=== PATIENT | female | born 1990 | race African-American/Black ===

== ENCOUNTER 2016-11-06 13:34 | Emergency (ER) | payer OTHER ==
[~2016-11-06] VITALS: Ht 165.1 cm; Wt 68.0 kg
[~2016-11-06 13:34] MED LIST: MACROBID 100 M100 M1 PO; NOHOMEMEDICATIONS; ONDANSETRON HCL4 M2 PO
[2016-11-06 13:35] VITALS: BP 100/62
[2016-11-06 13:49] LABS: URINE BILIRUBIN NEGATIVE (Negative); URINE BLOOD NEGATIVE (Negative); URINE COLOR YELLOW; URINE GLUCOSE-RANDOM* NEGATIVE (Negative); URINE KETONES NEGATIVE (Negative); URINE LEUKOCYTES-REFLEX NEGATIVE (Negative); URINE PROTEIN (DIPSTICK) TRACE (Negative); URINE SPECIFIC GRAVITY >= 1.030 (1.003-1.035)
[2016-11-06] MEDS ORDERED: FLAGYL500 MG PO (14:12)
[2016-11-09 15:06] LABS: CHLAMYDIA TRACHOMATIS-PCR Negative (Negative); NEISSERIA GONORRHEA-PCR Negative (Negative)
== END 2016-11-06 14:40 | disposition home or self-care (01) ==
LOC: ER 13:34
PROVIDERS: Physician Assistant
DX: N76.0 Acute vaginitis (principal)

== ENCOUNTER 2017-08-17 16:25 | Emergency (ER) | payer BC, OTHER ==
[~2017-08-17] VITALS: Ht 165.1 cm; Wt 67.1 kg
[~2017-08-17 16:25] MED LIST changes: +FLAGYL500 MG PO; +KEFLEX250 MG PO; +PHENAZOPYRIDIN200 M2 PO
[2017-08-17 16:51] LABS: URINE BILIRUBIN NEGATIVE (Negative); URINE BLOOD TRACE (Negative); URINE CLARITY CLEAR; URINE COLOR YELLOW; URINE GLUCOSE-RANDOM* NEGATIVE (Negative); URINE KETONES NEGATIVE (Negative); URINE LEUKOCYTES NEGATIVE (Negative); URINE NITRITE NEGATIVE (Negative); URINE PROTEIN (DIPSTICK) NEGATIVE (Negative); URINE SPECIFIC GRAVITY >= 1.030 (1.005-1.035); URINE UROBILINOGEN 0.2 E.U./dl (0.2-1.0)
[2017-08-17 18:02] LABS: HEMATOCRIT 38.4 % (37.0-47.0); HEMOGLOBIN 12.8 gm/dL (12.0-15.0); MCH 28.3 pg (26.0-34.0); MCHC 33.3 g/dL (28.0-37.0); RBC 4.51 mil/uL (4.20-5.00); RDW 12.8 % (10.5-14.5); WBC 6.9 thou/uL (4.0-11.0)
[2017-08-17 18:15] LABS: CALCIUM 9.1 mg/dL (8.5-10.1); CREATININE 0.8 mg/dL (0.6-1.0); POTASSIUM 3.6 mmol/L (3.5-5.1)
[2017-08-17 18:22] LABS: ALBUMIN 3.8 g/dL (3.4-5.0); TOTAL BILIRUBIN 0.5 mg/dL (<0.1-1.0); TOTAL PROTEIN 7.8 g/dL (6.4-8.2)
[2017-08-17] MEDS ORDERED: PHENERGAN 25 MG25 M1 PO (19:48)
[2017-08-17] MEDS ORDERED: HYDROCODONE-AP1 EAC6 PO (19:48)
[2018-03-29] MEDS ORDERED: ZOFRAN ODT4 MG PO (22:02)
== END 2017-08-17 20:16 | disposition home or self-care (01) ==
LOC: ER 16:25
PROVIDERS: Physician Assistant
DX: R11.2 Nausea with vomiting, unspecified (principal); R10.31 Right lower quadrant pain; J02.0 Streptococcal pharyngitis

== ENCOUNTER 2017-10-05 18:15 | Emergency (ER) | payer BC, OTHER ==
[~2017-10-05] VITALS: Ht 165.1 cm; Wt 68.0 kg
[~2017-10-05 18:15] MED LIST changes: +HYDROCODONE-AP1 EAC6 PO; +PHENERGAN 25 MG25 M1 PO
[2017-10-05] MEDS ORDERED: BACTRIM DS TAB1 EACH PO (19:12)
[2017-10-05] MEDS ORDERED: ULTRAM 50MG TAB50 MG PO (19:12)
[2018-03-29] MEDS ORDERED: ZOFRAN ODT4 MG PO (22:02)
== END 2017-10-05 19:20 | disposition home or self-care (01) ==
LOC: ER 18:15
DX: L03.116 Cellulitis of left lower limb (principal); W57.XXXA Bitten or stung by nonvenomous insect and other nonvenomous arthropods, initial encounter; Y93.89 Activity, other specified; Y92.89 Other specified places as the place of occurrence of the external cause; Y99.8 Other external cause status

== ENCOUNTER 2017-10-07 10:41 | Emergency (ER) | payer BC, OTHER ==
[~2017-10-07] VITALS: Ht 165.1 cm; Wt 68.0 kg
[~2017-10-07 10:41] MED LIST changes: +BACTRIM DS TAB1 EACH PO; +ULTRAM 50MG TAB50 MG PO
[2017-10-07 11:06] LABS: EOSINOPHILS 0.5 % (0.0-3.0)
[2017-10-07 11:08] LABS: ABSOLUTE NEUTROPHILS 6.5 thou/uL (1.4-8.2); BASOPHILS 0.3 % (0.0-2.0); HEMATOCRIT 35.5 % (37.0-47.0); HEMOGLOBIN 12.1 gm/dL (12.0-15.0); MCH 28.8 pg (26.0-34.0); MCHC 34.2 g/dL (28.0-37.0); MCV 84.3 fL (80.0-100.0); MONOCYTES 9.1 % (1.0-8.0); POLYS 71.1 % (36.0-66.0); RBC 4.21 mil/uL (4.20-5.00); RDW 12.9 % (10.5-14.5); WBC 10.3 thou/uL (4.0-11.0)
[2017-10-07 11:47] LABS: PLATELET ESTIMATE NORMAL
[2017-10-07 11:48] LABS: PLATELET COUNT 253 thou/uL (150-400)
[2017-10-07 11:56] LABS: CALCIUM 8.6 mg/dL (8.5-10.1); CREATININE 0.9 mg/dL (0.6-1.0); POTASSIUM 3.7 mmol/L (3.5-5.1)
[2017-10-07 12:02] LABS: ALBUMIN 3.2 g/dL (3.4-5.0); TOTAL BILIRUBIN 0.4 mg/dL (<0.1-1.0); TOTAL PROTEIN 7.3 g/dL (6.4-8.2)
[2017-10-07] MEDS ORDERED: ZOFRAN ODT4 M1 PO (12:45)
[2017-10-07] MEDS ORDERED: HYDROCODONE-AP1 EAC6 PO (12:45)
[2018-03-29] MEDS ORDERED: ZOFRAN ODT4 MG PO (22:02)
== END 2017-10-07 13:37 | disposition home or self-care (01) ==
LOC: ER 10:41
PROVIDERS: Physician Assistant
DX: L02.416 Cutaneous abscess of left lower limb (principal); R11.2 Nausea with vomiting, unspecified; T50.995A Adverse effect of other drugs, medicaments and biological substances, initial encounter; Y92.89 Other specified places as the place of occurrence of the external cause

== ENCOUNTER 2017-10-24 15:05 | Emergency (ER) | payer BC, OTHER ==
[~2017-10-24] VITALS: Ht 165.1 cm; Wt 68.0 kg
[~2017-10-24 15:05] MED LIST changes: +ZOFRAN ODT4 M1 PO
[2017-10-24 15:38] LABS: HEMOGLOBIN 12.2 gm/dL (12.0-15.0); MCHC 33.1 g/dL (28.0-37.0); MCV 84.7 fL (80.0-100.0); RBC 4.37 mil/uL (4.20-5.00); RDW 13.2 % (10.5-14.5); WBC 3.9 thou/uL (4.0-11.0)
[2017-10-24 15:48] LABS: CREATININE 0.9 mg/dL (0.6-1.0); POTASSIUM 3.9 mmol/L (3.5-5.1)
[2017-10-24 15:52] LABS: ALBUMIN 3.7 g/dL (3.4-5.0); TOTAL BILIRUBIN 0.4 mg/dL (<0.1-1.0)
[2017-10-24 16:06] LABS: URINE BILIRUBIN NEGATIVE (Negative); URINE BLOOD NEGATIVE (Negative); URINE CLARITY CLEAR; URINE COLOR YELLOW; URINE GLUCOSE-RANDOM* NEGATIVE (Negative); URINE KETONES NEGATIVE (Negative); URINE LEUKOCYTES NEGATIVE (Negative); URINE NITRITE NEGATIVE (Negative); URINE PROTEIN (DIPSTICK) NEGATIVE (Negative); URINE SPECIFIC GRAVITY 1.015 (1.005-1.035); URINE UROBILINOGEN 0.2 E.U./dl (0.2-1.0)
[2017-10-24] MEDS ORDERED: PHENERGAN 25 MG25 M1 PO (16:33)
[2017-10-24] MEDS ORDERED: IBUPROFEN 600600 M1 PO (16:33)
[2018-03-29] MEDS ORDERED: ZOFRAN ODT4 MG PO (22:02)
== END 2017-10-24 16:40 | disposition home or self-care (01) ==
LOC: ER 15:05
PROVIDERS: Physician Assistant
DX: R10.2 Pelvic and perineal pain (principal); R11.0 Nausea

== ENCOUNTER 2017-11-14 18:20 | Emergency (ER) | payer OTHER ==
[~2017-11-14] VITALS: Ht 190.5 cm; Wt 99.8 kg
[~2017-11-14 18:20] MED LIST changes: +IBUPROFEN 600600 M1 PO
[2017-11-14 18:59] LABS: URINE BILIRUBIN NEGATIVE (Negative); URINE BLOOD NEGATIVE (Negative); URINE CLARITY CLEAR; URINE COLOR YELLOW; URINE GLUCOSE-RANDOM* NEGATIVE (Negative); URINE KETONES NEGATIVE (Negative); URINE LEUKOCYTES NEGATIVE (Negative); URINE NITRITE NEGATIVE (Negative); URINE PROTEIN (DIPSTICK) NEGATIVE (Negative); URINE SPECIFIC GRAVITY 1.025 (1.005-1.035); URINE UROBILINOGEN 0.2 E.U./dl (0.2-1.0)
[2017-11-14 20:35] LABS: HEMATOCRIT 37.8 % (37.0-47.0); HEMOGLOBIN 12.6 gm/dL (12.0-15.0); MCH 28.2 pg (26.0-34.0); MCHC 33.3 g/dL (28.0-37.0); MCV 84.6 fL (80.0-100.0); PLATELET COUNT 214 thou/uL (150-400); RBC 4.47 mil/uL (4.20-5.00); RDW 13.6 % (10.5-14.5); WBC 6.1 thou/uL (4.0-11.0)
[2017-11-14 20:42] LABS: CALCIUM 9.4 mg/dL (8.5-10.1); CREATININE 0.8 mg/dL (0.6-1.0); POTASSIUM 3.5 mmol/L (3.5-5.1)
[2017-11-14 20:48] LABS: TOTAL BILIRUBIN 0.4 mg/dL (<0.1-1.0); TOTAL PROTEIN 8.4 g/dL (6.4-8.2)
[2017-11-14] MEDS ORDERED: VITAFOL-OB+DHA1 EACH PO (20:48)
[2017-11-14 20:59] LABS: ABSOLUTE NEUTROPHILS 4.6 thou/uL (1.4-8.2)
[2017-11-14 21:20] VITALS: BP 148/79
== END 2017-11-14 21:20 | disposition home or self-care (01) ==
LOC: ER 18:20
PROVIDERS: Physician Assistant
DX: O26.891 Other specified pregnancy related conditions, first trimester (principal); J02.0 Streptococcal pharyngitis; Z3A.01 Less than 8 weeks gestation of pregnancy

== ENCOUNTER 2017-11-16 17:21 | Emergency (ER) | payer OTHER ==
[~2017-11-16] VITALS: Ht 165.1 cm; Wt 68.0 kg
[~2017-11-16 17:21] MED LIST changes: +VITAFOL-OB+DHA1 EACH PO
[2017-11-16] MEDS ORDERED: ONDANSETRON HCL4 M2 PO (19:12)
[2017-11-16 19:26] VITALS: BP 116/69
== END 2017-11-16 19:26 | disposition home or self-care (01) ==
LOC: ER 17:21
DX: O26.891 Other specified pregnancy related conditions, first trimester (principal); R79.9 Abnormal finding of blood chemistry, unspecified; Z3A.01 Less than 8 weeks gestation of pregnancy

== ENCOUNTER 2018-01-16 09:50 | Emergency (ER) | payer BC, OTHER ==
[~2018-01-16] VITALS: Ht 165.1 cm; Wt 69.4 kg
[2018-01-16 09:52] VITALS: BP 110/69
[2018-01-16 10:23] LABS: URINE BILIRUBIN NEGATIVE (Negative); URINE BLOOD NEGATIVE (Negative); URINE CLARITY CLEAR; URINE COLOR YELLOW; URINE GLUCOSE-RANDOM* NEGATIVE (Negative); URINE KETONES NEGATIVE (Negative); URINE LEUKOCYTES-REFLEX NEGATIVE (Negative); URINE NITRITE-REFLEX NEGATIVE (Negative); URINE PROTEIN (DIPSTICK) NEGATIVE (Negative); URINE SPECIFIC GRAVITY 1.025 (1.005-1.035); URINE UROBILINOGEN 0.2 E.U./dl (0.2-1.0)
[2018-01-16] MEDS ORDERED: MOBIC7.5 MG PO (11:01)
[2018-01-16] MEDS ORDERED: CYCLOBENZAPRINE5 MG PO (11:01)
== END 2018-01-16 11:24 | disposition home or self-care (01) ==
LOC: ER 09:50
PROVIDERS: Physician Assistant
DX: S09.90XA Unspecified injury of head, initial encounter (principal); S39.012A Strain of muscle, fascia and tendon of lower back, initial encounter; R07.9 Chest pain, unspecified; R35.0 Frequency of micturition; V89.2XXA Person injured in unspecified motor-vehicle accident, traffic, initial encounter; Y92.89 Other specified places as the place of occurrence of the external cause; Y93.89 Activity, other specified; Y99.8 Other external cause status

== ENCOUNTER 2018-01-25 09:23 | Emergency (ER) | payer BC, OTHER ==
[~2018-01-25] VITALS: Ht 165.1 cm; Wt 69.4 kg
[~2018-01-25 09:23] MED LIST changes: +CYCLOBENZAPRINE5 MG PO; +MOBIC7.5 MG PO
[2018-01-25 09:45] LABS: URINE BILIRUBIN NEGATIVE (Negative); URINE BLOOD NEGATIVE (Negative); URINE CLARITY CLEAR; URINE COLOR YELLOW; URINE GLUCOSE-RANDOM* NEGATIVE (Negative); URINE KETONES NEGATIVE (Negative); URINE LEUKOCYTES-REFLEX NEGATIVE (Negative); URINE NITRITE-REFLEX NEGATIVE (Negative); URINE PROTEIN (DIPSTICK) NEGATIVE (Negative); URINE UROBILINOGEN 0.2 E.U./dl (0.2-1.0)
[2018-01-25 10:07] VITALS: BP 101/68
== END 2018-01-25 10:07 | disposition home or self-care (01) ==
LOC: ER 09:23
PROVIDERS: Emergency Medicine
DX: R53.81 Other malaise (principal); R11.0 Nausea; H92.03 Otalgia, bilateral; Z32.02 Encounter for pregnancy test, result negative

== ENCOUNTER 2018-05-22 15:03 | Emergency (ER) | payer OTHER ==
[~2018-05-22] VITALS: Ht 165.1 cm; Wt 70.3 kg
[~2018-05-22 15:03] MED LIST changes: +ZOFRAN ODT4 MG PO
[2018-05-22 16:06] LABS: URINE BILIRUBIN NEGATIVE (Negative); URINE BLOOD NEGATIVE (Negative); URINE CLARITY CLEAR; URINE COLOR YELLOW; URINE GLUCOSE-RANDOM* NEGATIVE (Negative); URINE KETONES NEGATIVE (Negative); URINE LEUKOCYTES-REFLEX NEGATIVE (Negative); URINE NITRITE-REFLEX NEGATIVE (Negative); URINE PROTEIN (DIPSTICK) NEGATIVE (Negative); URINE SPECIFIC GRAVITY >= 1.030 (1.005-1.035); URINE UROBILINOGEN 0.2 E.U./dl (0.2-1.0)
[2018-05-22 16:45] LABS: HEMATOCRIT 33.7 % (37.0-47.0); HEMOGLOBIN 11.6 gm/dL (12.0-15.0); MCH 28.9 pg (26.0-34.0); MCHC 34.5 g/dL (28.0-37.0); MCV 83.8 fL (80.0-100.0); RBC 4.02 mil/uL (4.20-5.00); RDW 12.6 % (10.5-14.5); WBC 7.3 thou/uL (4.0-11.0)
[2018-05-22 16:54] LABS: CALCIUM 9.3 mg/dL (8.5-10.1); CREATININE 0.8 mg/dL (0.6-1.0)
[2018-05-22] MEDS ORDERED: REGLAN 10 MG TA10 MG PO (17:40)
[2018-05-22 17:58] VITALS: BP 108/60
== END 2018-05-22 18:15 | disposition home or self-care (01) ==
LOC: ER 15:03
PROVIDERS: Physician Assistant
DX: O26.899 Other specified pregnancy related conditions, unspecified trimester (principal); Z3A.00 Weeks of gestation of pregnancy not specified; R11.2 Nausea with vomiting, unspecified

== ENCOUNTER 2018-08-16 13:29 | Emergency (ER) | payer OTHER ==
[~2018-08-16] VITALS: Ht 165.1 cm; Wt 70.3 kg
[~2018-08-16 13:29] MED LIST changes: +REGLAN 10 MG TA10 MG PO
[2018-08-16 16:16] VITALS: BP 102/64
== END 2018-08-16 16:00 | disposition home or self-care (01) ==
LOC: ER 13:29
DX: R05 Cough (principal); R50.9 Fever, unspecified